=== PATIENT | male | born 1980 | race African-American/Black ===

== ENCOUNTER 2016-11-06 13:19 | Emergency (ER) | payer OTHER ==
[2016-11-06] MEDS ORDERED: Ibuprofen 800 MG TAB ONE (13:47)
--- NOTE | 2016-11-06 14:00 | RAD ---
RIGHT ELBOW FOUR VIEWS HISTORY: Right elbow pain. COMPARISON: 08/28/2013 FINDINGS: Radial capitellar alignment is maintained. There is mild osteophytosis. No acute fracture or dislo cation is apparent. No fluid distention of the joint capsule is evident. IMPRESSION: Mild osteoarthritic changes, right elbow. POS: [facility]
[2016-11-06 14:07] LABS: Bilirubin Negative (Negative); Blood, Urine Trace (Negative); Clarity Clear (Clear); Glucose, Urine (Dipstick) Negative (Negative); Leukocyte Small (Negative); Nitrite Negative (Negative); Protein, Urine (Dipstick) Negative (Neg-Trace); pH, Urine 7.5 (5.0-9.0)
[2016-11-06 14:27] LABS: RBC/HPF 0-3 HPF (0-3); Squamous Epithelial 0-3 HPF (0-3)
[2016-11-06 14:28] LABS: Bacteria/HPF Rare-Few HPF (None Seen); Other Microscopic Description NO
== END 2016-11-06 14:32 | disposition home or self-care (01) ==
LOC: NAV ERS 13:19
DX: S53.401A Unspecified sprain of right elbow, initial encounter (principal); F17.210 Nicotine dependence, cigarettes, uncomplicated; T14.8 Other injury of unspecified body region; W31.89XA Contact with other specified machinery, initial encounter
CPT/HCPCS: 81003; 81015; 99001

== ENCOUNTER 2017-04-13 10:23 | Emergency (ER) | payer OTHER, SELFPAY ==
[2017-04-13] MEDS ORDERED: Acetaminophen 500 MG TAB ONE (10:49)
[2017-04-13] MEDS ORDERED: Oseltamivir 75 MG CAP ONE (10:49)
== END 2017-04-13 11:31 | disposition home or self-care (01) ==
LOC: NAV ERS 10:23
DX: J11.1 Influenza due to unidentified influenza virus with other respiratory manifestations (principal); F17.210 Nicotine dependence, cigarettes, uncomplicated
CPT/HCPCS: 99283

== ENCOUNTER 2018-02-09 12:20 | Emergency (ER) | payer BC, SELFPAY ==
[2018-02-09] MEDS ORDERED: diphenhydrAMINE 50 MG/ML VIAL ONE (12:51)
[2018-02-09] MEDS ORDERED: Sodium Chloride 0.9% 1,000 ML ONE (12:51)
[2018-02-09] MEDS ORDERED: Metoclopramide HCl 10 MG/2 ML VIAL ONE (12:51)
--- NOTE | 2018-02-09 13:48 | CT ---
CT BRAIN WITHOUT CONTRAST: History: Syncope. Comparison: None. Findings: No hemorrhage or infarct. No midline shift. Normal ventricular size. IMPRESSION: No acute intracranial abnormality. POS: [facility]
== END 2018-02-09 14:00 | disposition home or self-care (01) ==
LOC: NAV ERS 12:20
DX: R51 Headache (principal); F17.210 Nicotine dependence, cigarettes, uncomplicated
CPT/HCPCS: 70450; 93005; 96365; 96375; J1200; J2765; J7050

== ENCOUNTER 2018-07-07 10:38 | Emergency (ER) | payer BC ==
--- NOTE | 2018-07-07 11:22 | RAD ---
EXAM: Two views chest PROVIDED CLINICAL HISTORY: Lightheadedness. COMPARISON: 01/03/2016 FINDINGS: Cardiac silhouette and pulmonary vasculature are within normal limits. The lungs are clear. The osseo us structures have a normal appearance. IMPRESSION: No acute cardiopulmonary process.
[2018-07-07 11:36] LABS: #Basophils 0.1 thou/uL (0.0-0.2); #Eosinphils 0.2 thou/uL (0.0-0.7); #Lymphocytes 1.7 thou/uL (1.20-3.40); #Monocytes 0.8 thou/uL (0.11-0.59); %Basophils 1.9 % (0.0-1.0); %Eosinophils 2.2 % (0.0-10.0); %Lymphocytes 21.6 % (21.0-51.0); %Monocytes 9.8 % (0.0-10.0); %Neutrophils 64.6 % (42.0-75.0); Hemoglobin 14.6 g/dL (14.0-18.0); Mean Corpuscular Hemoglobin 29.2 pg (27.0-31.0); Mean Corpuscular Volume 91.5 fL (78.0-98.0); Mean Platelet Volume 7.5 fL (7.4-10.4); Platelet Count 236 thou/uL (130-400); White Blood Cell (WBC) Count 7.7 thou/uL (4.8-10.8)
[2018-07-07 11:50] LABS: ALT (SGPT) 23 U/L (8-55); AST (SGOT) 20 U/L (5-34); Albumin 4.4 g/dL (3.5-5.0); Alkaline Phosphatase 87 U/L (40-150); Anion Gap 15 mmol/L (10-20); BUN (Urea Nitrogen) 12 mg/dL (8.9-20.6); Bilirubin, Total 0.5 mg/dL (0.2-1.2); Calc. Creatinine Clearance 0 mL/min (70-130); Calcium 9.9 mg/dL (7.8-10.44); Carbon Dioxide 23 mmol/L (22-29); Chloride 105 mmol/L (98-107); Estimated GFR-MDRD 88; Globulin 2.8 g/dL (2.4-3.5); Glucose 107 mg/dL (70-105); Magnesium 1.8 mg/dL (1.6-2.6); Potassium 4.3 mmol/L (3.5-5.1); Protein, Total 7.2 g/dL (6.0-8.3); Sodium 139 mmol/L (136-145)
== END 2018-07-07 12:30 | disposition home or self-care (01) ==
LOC: NAV ERS 10:38
DX: R42 Dizziness and giddiness (principal); R00.2 Palpitations; F17.210 Nicotine dependence, cigarettes, uncomplicated
CPT/HCPCS: 71046; 80053; 83735; 84443; 85025; 93005; 94760

== ENCOUNTER 2021-01-09 11:40 | Emergency (ER) | payer SELFPAY ==
[~2021-01-09 11:40] MED LIST: Iopamidol 370 76% 100 ML VIAL ONE
[2021-01-09 12:17] LABS: #Basophils 0.2 thou/uL (0.0-0.2); #Neutrophils 7.2 thou/uL (1.40-6.50); %Basophils 2.7 % (0.0-1.0); %Eosinophils 0.3 % (0.0-10.0); %Lymphocytes 10.5 % (21.0-51.0); %Monocytes 10.2 % (0.0-10.0); %Neutrophils 76.3 % (42.0-75.0); Hemoglobin 15.5 g/dL (14.0-18.0); Mean Corpuscular HGB CONC 33.6 g/dL (32.0-36.0); Mean Corpuscular Volume 92.3 fL (78.0-98.0); Mean Platelet Volume 8.4 fL (7.4-10.4); Platelet Count 228 thou/uL (130-400); White Blood Cell (WBC) Count 9.4 thou/uL (4.8-10.8)
[2021-01-09 12:30] LABS: ALT (SGPT) 42 U/L (8-55); AST (SGOT) 22 U/L (5-34); Albumin 4.3 g/dL (3.5-5.0); Alkaline Phosphatase 85 U/L (40-110); Anion Gap 14 mmol/L (10-20); BUN (Urea Nitrogen) 10 mg/dL (8.9-20.6); Bilirubin, Total 0.7 mg/dL (0.2-1.2); Calc. Creatinine Clearance 0 mL/min (70-130); Calcium 9.3 mg/dL (7.8-10.44); Carbon Dioxide 22 mmol/L (22-29); Chloride 104 mmol/L (98-107); Globulin 3.3 g/dL (2.4-3.5); Glucose 124 mg/dL (70-105); Lipase 7 U/L (8-78); Protein, Total 7.6 g/dL (6.0-8.3); Sodium 136 mmol/L (136-145)
[2021-01-09] MEDS ORDERED: Ondansetron PF 4 MG/2 ML Vial ONE (13:59)
== END 2021-01-09 14:11 | disposition home or self-care (01) ==
LOC: NAV ERS 11:40
DX: R10.10 Upper abdominal pain, unspecified (principal); R19.7 Diarrhea, unspecified; F17.210 Nicotine dependence, cigarettes, uncomplicated
CPT/HCPCS: 71045; 74177; 80053; 83690; 84484; 85025; 93005; 94760; 96374; J2405; Q9967

== ENCOUNTER 2021-03-13 13:42 | Emergency (ER) | payer SELFPAY ==
[2021-03-13] MEDS ORDERED: Ibuprofen 200 MG TAB ONE (14:32)
[2021-03-14 07:40] LABS: SARS-CoV-2 PCR by NAA DETECTED (NotDetected)
== END 2021-03-13 14:35 | disposition home or self-care (01) ==
LOC: NAV ERS 13:42
DX: U07.1 COVID-19 (principal); F17.210 Nicotine dependence, cigarettes, uncomplicated
CPT/HCPCS: 99284; U0003; U0005

== ENCOUNTER 2023-04-18 00:21 | Emergency (ER) | payer SELFPAY | END 2023-04-18 00:53 | disposition home or self-care (01) | LOC: NAV ERS 00:21 | DX: B34.9 Viral infection, unspecified (principal); F17.210 Nicotine dependence, cigarettes, uncomplicated | CPT/HCPCS: 99283 ==

== ENCOUNTER 2023-09-19 03:08 | Emergency (ER) | payer OTHER, SELFPAY ==
[2023-09-19] MEDS ORDERED: Mag-Al Plus 1200/1200/120 MG (30 mL) UDCUP ONE (03:35)
[2023-09-19] MEDS ORDERED: Lidocaine 2% Viscous 100 ML BOTTLE ONE (03:35)
[2023-09-19] MEDS ORDERED: Ibuprofen 200 MG TAB ONE (03:41)
== END 2023-09-19 05:45 | disposition home or self-care (01) ==
LOC: NAV ERS 03:08
DX: S82.832A Other fracture of upper and lower end of left fibula, initial encounter for closed fracture (principal); F17.210 Nicotine dependence, cigarettes, uncomplicated; W22.8XXA Striking against or struck by other objects, initial encounter
CPT/HCPCS: 70486

== ENCOUNTER 2024-04-04 10:22 | Emergency (ER) | payer OTHER, SELFPAY ==
[2024-04-04 11:15] LABS: ALT (SGPT) 27 U/L (8-55); AST (SGOT) 14 U/L (5-34); Albumin 3.9 g/dL (3.5-5.0); Alkaline Phosphatase 80 U/L (40-110); Anion Gap 13 mmol/L (10-20); BUN (Urea Nitrogen) 9 mg/dL (8.9-20.6); Bilirubin, Total 0.4 mg/dL (0.2-1.2); Calc. Creatinine Clearance 0 mL/min (70-130); Calcium 9.6 mg/dL (7.8-10.44); Carbon Dioxide 24 mmol/L (22-29); Chloride 106 mmol/L (98-107); Estimated GFR 75; Globulin 3.2 g/dL (2.4-3.5); Glucose 194 mg/dL (70-105); Potassium 4.2 mmol/L (3.5-5.1); Protein, Total 7.1 g/dL (6.0-8.3); Sodium 139 mmol/L (136-145)
[2024-04-04 11:16] LABS: #Basophils 0.1 thou/uL (0.0-0.2); #Eosinophils 0.1 thou/uL (0.0-0.7); #Lymphocytes 1.7 thou/uL (1.20-3.40); #Monocytes 0.5 thou/uL (0.11-0.59); #Neutrophils 3.7 thou/uL (1.40-6.50); %Basophils 2.3 % (0.0-1.0); %Eosinophils 2.2 % (0.0-10.0); %Lymphocytes 27.6 % (21.0-51.0); %Monocytes 8.3 % (0.0-10.0); %Neutrophils 59.5 % (42.0-75.0); Hematocrit 43.3 % (42.0-52.0); Hemoglobin 13.9 g/dL (14.0-18.0); Mean Corpuscular HGB CONC 32.1 g/dL (32.0-36.0); Mean Corpuscular Hemoglobin 28.4 pg (27.0-31.0); Mean Corpuscular Volume 88.5 fl (78.0-98.0); Mean Platelet Volume 8.4 fL (7.4-10.4); Platelet Count 250 10x3/uL (130-400); RBC Distribution Width 11.5 % (11.5-14.5); White Blood Cell (WBC) Count 6.2 10x3/uL (4.8-10.8)
[2024-04-04 11:39] LABS: Bilirubin Negative (Negative); Blood, Urine Trace (Negative); Clarity Clear (Clear); Glucose, Urine (Dipstick) Negative (Negative); Ketone, Urine Trace mg/dL (Negative); Leukocyte Negative (Negative); Nitrite Negative (Negative); Protein, Urine (Dipstick) Negative (Neg-Trace); pH, Urine 6.5 (5.0-9.0)
[2024-04-04 12:20] LABS: CAUTI Indications for Culture Alt mental st,lethar; Renal Epithelial 0-3 HPF (None Seen); Squamous Epithelial None Seen HPF (0-3); Transitional Epithelial None Seen HPF (None Seen); WBC/HPF 0-3 HPF (0-3)
[2024-04-04 12:21] LABS: Bacteria/HPF Rare-Few HPF (None Seen); Mucous/LPF Rare LPF (<2+)
[2024-04-04 12:22] LABS: Urine Culture Reflex No No
== END 2024-04-04 12:33 | disposition home or self-care (01) ==
LOC: NAV ERS 10:22
DX: R51.9 Headache, unspecified (principal); E86.0 Dehydration; F17.210 Nicotine dependence, cigarettes, uncomplicated
CPT/HCPCS: 36415; 80053; 81001; 85025; 99284

== ENCOUNTER 2024-11-13 13:03 | Emergency (ER) | payer SELFPAY | END 2024-11-13 13:35 | disposition home or self-care (01) | LOC: NAV ERS 13:03 | DX: M77.11 Lateral epicondylitis, right elbow (principal); F17.200 Nicotine dependence, unspecified, uncomplicated | CPT/HCPCS: 99283; J1885 ==

== ENCOUNTER 2024-12-17 20:02 | Emergency (ER) | payer OTHER, SELFPAY ==
[2024-12-17] MEDS ORDERED: Ketorolac Tromethamine 30 MG (1 mL) VIAL ONE (20:15)
== END 2024-12-17 22:10 | disposition home or self-care (01) ==
LOC: NAV ERS 20:02
DX: S52.501A Unspecified fracture of the lower end of right radius, initial encounter for closed fracture (principal); F10.129 Alcohol abuse with intoxication, unspecified; F17.290 Nicotine dependence, other tobacco product, uncomplicated; V80.010A Animal-rider injured by fall from or being thrown from horse in noncollision accident, initial encounter; Y93.52 Activity, horseback riding; Y90.9 Presence of alcohol in blood, level not specified
CPT/HCPCS: 29105; 70450; 72125; 96374; J1885; J7030